=== PATIENT | female | born 1970 | race Two or more races ===

== ENCOUNTER → 2020-08-30 | Outpatient (CLI) | payer MEDICARE | END | disposition home or self-care (01) | LOC: ECT 13:07 | DX: F31.4 Bipolar disorder, current episode depressed, severe, without psychotic features (principal); G47.00 Insomnia, unspecified; Z79.899 Other long term (current) drug therapy; E78.5 Hyperlipidemia, unspecified; M19.90 Unspecified osteoarthritis, unspecified site ==

== ENCOUNTER 2020-09-04 05:59 | Outpatient (RCR) | payer MEDICARE ==
[2020-09-04] VITALS (8 sets, daily range): BP systolic 108–157; BP diastolic 66–96
[~2020-09-04] VITALS: Ht 160 cm; Wt 77.1 kg
[2020-09-04] MEDS ORDERED: Succinylcholine 20mg/ml 10ml vial ONE (06:00)
[2020-09-04] MEDS ORDERED: Methohexita Syr 100mg/10ml IVP ONE (06:00)
[2020-09-04] MEDS ORDERED: NS 500ML ONE (06:00)
[2020-09-06] VITALS (7 sets, daily range): BP systolic 114–128; BP diastolic 69–82
[2020-09-06] MEDS ORDERED: NS 500ML ONE (06:00)
[2020-09-06] MEDS ORDERED: Methohexita Syr 100mg/10ml IVP ONE (06:00)
[2020-09-06] MEDS ORDERED: Midazolam 2mg/2ml Inj ONE (06:00)
[2020-09-06] MEDS ORDERED: Succinylcholine 20mg/ml 10ml vial ONE (06:00)
[2020-09-09] VITALS (7 sets, daily range): BP systolic 111–149; BP diastolic 66–90
[2020-09-09] MEDS ORDERED: Succinylcholine 20mg/ml 10ml vial ONE (06:00)
[2020-09-09] MEDS ORDERED: Methohexita Syr 100mg/10ml IVP ONE (06:00)
[2020-09-09] MEDS ORDERED: Midazolam 2mg/2ml Inj ONE (06:00)
[2020-09-09] MEDS ORDERED: NS 500ML ONE (06:00)
[2020-09-11] VITALS (7 sets, daily range): BP systolic 123–151; BP diastolic 67–91
[2020-09-11] MEDS ORDERED: Midazolam 2mg/2ml Inj ONE (09:00)
[2020-09-11] MEDS ORDERED: Methohexita Syr 100mg/10ml IVP ONE (09:00)
[2020-09-11] MEDS ORDERED: Succinylcholine 20mg/ml 10ml vial ONE (09:00)
[2020-09-11] MEDS ORDERED: NS 500ML ONE (09:00)
[2020-09-16] VITALS (7 sets, daily range): BP systolic 0–162; BP diastolic 56–140
[2020-09-16] MEDS ORDERED: Midazolam 2mg/2ml Inj ONE (08:00)
[2020-09-16] MEDS ORDERED: NS 500ML ONE (08:00)
[2020-09-16] MEDS ORDERED: Methohexita Syr 100mg/10ml IVP ONE (08:00)
[2020-09-16] MEDS ORDERED: Succinylcholine 20mg/ml 10ml vial ONE (08:00)
[2020-09-18] VITALS (7 sets, daily range): BP systolic 116–147; BP diastolic 64–76
[2020-09-18] MEDS ORDERED: Succinylcholine 20mg/ml 10ml vial ONE (09:00)
[2020-09-18] MEDS ORDERED: Midazolam 2mg/2ml Inj ONE (09:00)
[2020-09-18] MEDS ORDERED: Methohexita Syr 100mg/10ml IVP ONE (09:00)
[2020-09-18] MEDS ORDERED: NS 500ML ONE (09:00)
== END 2020-09-19 | disposition home or self-care (01) ==
LOC: ECT 05:59
DX: F31.4 Bipolar disorder, current episode depressed, severe, without psychotic features (principal)
CPT/HCPCS: 90870; J0330; J2250; J7040

== ENCOUNTER 2020-09-23 07:42 | Outpatient (RCR) | payer MEDICARE ==
[~2020-09-23] VITALS: Ht 160 cm; Wt 77.0 kg
[2020-09-23] VITALS (7 sets, daily range): BP systolic 122–142; BP diastolic 67–79
[2020-09-23] MEDS ORDERED: Succinylcholine 20mg/ml 10ml vial ONE ×2 (07:43)
[2020-09-23] MEDS ORDERED: Midazolam 2mg/2ml Inj ONE ×2 (07:43)
[2020-09-23] MEDS ORDERED: NS 500ML ONE (07:43)
[2020-09-23] MEDS ORDERED: Methohexita Syr 100mg/10ml IVP ONE ×2 (07:43)
[2020-09-23] MEDS ORDERED: Atropine Sulfate 0.4mg/ml inj IVP PRN (10:19)
[2020-09-23] MEDS ORDERED: Lidocaine 2% 100mg/5ml Carp IV PRN (10:19)
[2020-09-25] VITALS (7 sets, daily range): BP systolic 121–146; BP diastolic 64–87
[2020-09-27] MEDS ORDERED: NS 500ML ONE (06:00)
[2020-09-27] MEDS ORDERED: Methohexita Syr 100mg/10ml IVP ONE (06:00)
[2020-09-27] MEDS ORDERED: Midazolam 2mg/2ml Inj ONE (06:00)
[2020-09-27] MEDS ORDERED: Succinylcholine 20mg/ml 10ml vial ONE (06:00)
[2020-09-27 10:19] VITALS: BP 128/74
[2020-09-27 10:24] VITALS: BP 132/74
[2020-09-27 10:29] VITALS: BP 132/75
[2020-09-27 10:34] VITALS: BP 123/73
[2020-09-27 10:39] VITALS: BP 127/70
[2020-09-27 10:44] VITALS: BP 117/70
[2020-09-30] VITALS (7 sets, daily range): BP systolic 121–135; BP diastolic 70–85
[2020-09-30] MEDS ORDERED: NS 500ML ONE (06:00)
[2020-09-30] MEDS ORDERED: Succinylcholine 20mg/ml 10ml vial ONE (06:00)
[2020-09-30] MEDS ORDERED: Midazolam 2mg/2ml Inj ONE (06:00)
[2020-09-30] MEDS ORDERED: Methohexita Syr 100mg/10ml IVP ONE (06:00)
[2020-10-02] VITALS (7 sets, daily range): BP systolic 128–137; BP diastolic 73–87
[2020-10-02] MEDS ORDERED: Midazolam 2mg/2ml Inj ONE (06:00)
[2020-10-02] MEDS ORDERED: Succinylcholine 20mg/ml 10ml vial ONE (06:00)
[2020-10-02] MEDS ORDERED: NS 500ML ONE (06:00)
[2020-10-02] MEDS ORDERED: Methohexita Syr 100mg/10ml IVP ONE (06:00)
[2020-10-04] VITALS (7 sets, daily range): BP systolic 124–142; BP diastolic 67–90
[2020-10-04] MEDS ORDERED: Methohexita Syr 100mg/10ml IVP ONE (06:00)
[2020-10-04] MEDS ORDERED: NS 500ML ONE (06:00)
[2020-10-04] MEDS ORDERED: Midazolam 2mg/2ml Inj ONE (06:00)
[2020-10-04] MEDS ORDERED: Succinylcholine 20mg/ml 10ml vial ONE (06:00)
== END 2020-10-20 | disposition home or self-care (01) ==
LOC: ECT 07:42
DX: F31.4 Bipolar disorder, current episode depressed, severe, without psychotic features (principal)
CPT/HCPCS: 90870; J0330; J2250; J7040